=== PATIENT | female | born 1985 | race Caucasian/White ===

== ENCOUNTER 2017-07-17 17:09 | Emergency (ER) | payer MEDICAID, OTHER ==
[~2017-07-17] VITALS: Ht 157.5 cm; Wt 120.0 kg
[~2017-07-17 17:09] MED LIST: ADDE10 PO; ALBUAER3 INH; CEPH500C PO; CYCL5TAB PO; FLUC150T PO; TRAM50TA PO; ZOFR8TAB4 SL; benadryl
[2017-07-17 17:20] VITALS: BP 138/80; PULSE 132; RESP 20; TEMP 101.5; O2SAT 100
[2017-07-17] MEDS ORDERED: SODIUM CHLOR 0.9% 1000 ML INJ 1,000 ML IV SCH (17:41)
--- NOTE | 2017-07-17 17:44 | PD ---
HPI Chief Complaint: GI Complaint Time Seen by Provider: 17:32 Travel History International Travel<30 days: No Contact w/Intl Traveler<30days: No Traveled to known affect area: No History of Present Illness HPI 32-year-old female with no significant medical history presents emergency department for evaluation of nausea, vomiting, diarrhea that began yesterday. She also developed a fever throughout the night. 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 She denies any cough or chest congestion. She denies any significant abdominal pain. She has no other symptoms to report at this time. PFSH Past Medical History GERD: Yes Immunizations Current: No ?: Not : 4 Para: 2 Miscarriage: 1 Past Surgical History Appendectomy: Yes Section: Yes Cholecystectomy: Yes Social History Alcohol Use: No Tobacco Use: No Substance Use: No Allergies-Medications (Allergen,Severity, Reaction): Coded Allergies: Sulfa (Sulfonamide Antibiotics) (Verified Allergy, Severe, 07/17/17) codeine (Verified Allergy, Severe, Shortness of Breath, 07/17/17) methylergonovine (Verified Allergy, Severe, 07/17/17) penicillin G (Verified Allergy, Severe, 07/17/17) Reported Meds & Prescriptions Reported Meds & Active Scripts Active Zofran Odt (Ondansetron Odt) 4 Mg Tab 4 Mg SL Q8HR PRN Reported Tramadol (Tramadol HCl) 50 Mg Tab 50 Mg PO Q4H PRN Review of Systems Except as stated in HPI: all other systems reviewed are Neg Physical Exam Narrative GENERAL: Obese female patient, in no acute distress SKIN: Focused skin assessment warm/dry. HEAD: Atraumatic. Normocephalic. EYES: Pupils equal and round. No scleral icterus. No injection or drainage. ENT: No nasal bleeding or discharge. Mucous membranes pink and moist. NECK: Trachea midline. No JVD. CARDIOVASCULAR: Tachycardic rate and rhythm. No murmur appreciated. RESPIRATORY: No accessory muscle use. Clear to auscultation. Breath sounds equal bilaterally. GASTROINTESTINAL: Abdomen soft, non-tender, nondistended. No guarding. No rebound tenderness hepatic and splenic margins not palpable. MUSCULOSKELETAL: No obvious deformities. No clubbing. No cyanosis. No edema. NEUROLOGICAL: Awake and alert. No obvious cranial nerve deficits. Motor grossly within normal limits. Normal speech. PSYCHIATRIC: Appropriate mood and affect; insight and judgment normal. Data Data Last Documented VS Vital Signs Date Time Temp Pulse Resp B/P (MAP) Pulse Ox O2 Delivery O2 Flow Rate FiO2 07/17/17 21:29 07/17/17 20:52 105 07/17/17 18:46 16 07/17/17 18:34 98.9 99 Orders Orders Complete Blood Count With Diff (07/17/17 17:41) Comprehensive Metabolic Panel (07/17/17 17:41) Lipase (07/17/17 17:41) Lactic Acid (07/17/17 17:41) Urinalysis - C+S If Indicated (07/17/17 17:41) Iv Access Insert/Monitor (07/17/17 17:41) Ecg Monitoring (07/17/17 17:41) Oximetry (07/17/17 17:41) Sodium Chlor 0.9% 1000 Ml Inj (Ns 1000 M (07/17/17 17:41) Sodium Chloride 0.9% Flush (Ns Flush) (07/17/17 17:45) Ketorolac Inj (Toradol Inj) (07/17/17 17:45) Sodium Chlor 0.9% 1000 Ml Inj (Ns 1000 M (07/17/17 17:45) Sodium Chlor 0.9% 1000 Ml Inj (Ns 1000 M (07/17/17 17:45) Acetaminophen (Tylenol) (07/17/17 17:45) Ed Urine Pregnancytest Poc (07/17/17 17:43) Influenzae A/B Antigen (07/17/17 17:43) Ondansetron Odt (Zofran Odt) (07/17/17 21:00) Ed Discharge Order (07/17/17 21:27) Labs Laboratory Tests Test 07/17/17 18:00 07/17/17 20:32 White Blood Count 6.1 TH/MM3 Red Blood Count 4.30 MIL/MM3 Hemoglobin 13.1 GM/DL Hematocrit 38.5 % Mean Corpuscular Volume 89.7 FL Mean Corpuscular Hemoglobin 30.5 PG Mean Corpuscular Hemoglobin Concent 34.0 % Red Cell Distribution Width 13.0 % Platelet Count 310 TH/MM3 Mean Platelet Volume 7.7 FL Neutrophils (%) (Auto) 68.9 % Lymphocytes (%) (Auto) 18.1 % Monocytes (%) (Auto) 12.0 % Eosinophils (%) (Auto) 0.7 % Basophils (%) (Auto) 0.3 % Neutrophils # (Auto) 4.2 TH/MM3 Lymphocytes # (Auto) 1.1 TH/MM3 Monocytes # (Auto) 0.7 TH/MM3 Eosinophils # (Auto) 0.0 TH/MM3 Basophils # (Auto) 0.0 TH/MM3 CBC Comment DIFF FINAL Differential Comment Blood Urea Nitrogen 10 MG/DL Creatinine 0.76 MG/DL Random Glucose 86 MG/DL Total Protein 7.7 GM/DL Albumin 3.7 GM/DL Calcium Level 8.5 MG/DL Alkaline Phosphatase 91 U/L Aspartate Amino Transf (AST/SGOT) 45 U/L Alanine Aminotransferase (ALT/SGPT) 47 U/L Total Bilirubin 0.8 MG/DL Sodium Level 138 MEQ/L Potassium Level 3.3 MEQ/L Chloride Level 103 MEQ/L Carbon Dioxide Level 23.5 MEQ/L Anion Gap 12 MEQ/L Estimat Glomerular Filtration Rate 87 ML/MIN Lactic Acid Level 0.8 mmol/L Lipase 106 U/L Urine Color LIGHT-YELLOW Urine Turbidity CLEAR Urine pH 5.5 Urine Specific [place] 1.005 Urine Protein NEG mg/dL Urine Glucose (UA) NEG mg/dL Urine Ketones TRACE mg/dL Urine Occult Blood NEG Urine Nitrite NEG Urine Bilirubin NEG Urine Urobilinogen LESS THAN 2.0 MG/DL Urine Leukocyte Esterase NEG Urine Squamous Epithelial Cells 2 /hpf Microscopic Urinalysis Comment CULT NOT INDICATED MDM Medical Decision Making Medical Screen Exam Complete: Yes Emergency Medical Condition: Yes Medical Record Reviewed: Yes Differential Diagnosis Gastroenteritis versus influenza versus UTI versus other viral syndrome Narrative Course 32-year-old female presents emergency department for evaluation. Patient is tachycardic and with a fever. She is given IV normal saline fluid, Toradol, Tylenol. Upon reassessment, fever has reduced and her heart rate has also. Laboratory Tests Test 07/17/17 18:00 07/17/17 20:32 White Blood Count 6.1 TH/MM3 Red Blood Count 4.30 MIL/MM3 Hemoglobin 13.1 GM/DL Hematocrit 38.5 % Mean Corpuscular Volume 89.7 FL Mean Corpuscular Hemoglobin 30.5 PG Mean Corpuscular Hemoglobin Concent 34.0 % Red Cell Distribution Width 13.0 % Platelet Count 310 TH/MM3 Mean Platelet Volume 7.7 FL Neutrophils (%) (Auto) 68.9 % Lymphocytes (%) (Auto) 18.1 % Monocytes (%) (Auto) 12.0 % Eosinophils (%) (Auto) 0.7 % Basophils (%) (Auto) 0.3 % Neutrophils # (Auto) 4.2 TH/MM3 Lymphocytes # (Auto) 1.1 TH/MM3 Monocytes # (Auto) 0.7 TH/MM3 Eosinophils # (Auto) 0.0 TH/MM3 Basophils # (Auto) 0.0 TH/MM3 CBC Comment DIFF FINAL Differential Comment Blood Urea Nitrogen 10 MG/DL Creatinine 0.76 MG/DL Random Glucose 86 MG/DL Total Protein 7.7 GM/DL Albumin 3.7 GM/DL Calcium Level 8.5 MG/DL Alkaline Phosphatase 91 U/L Aspartate Amino Transf (AST/SGOT) 45 U/L Alanine Aminotransferase (ALT/SGPT) 47 U/L Total Bilirubin 0.8 MG/DL Sodium Level 138 MEQ/L Potassium Level 3.3 MEQ/L Chloride Level 103 MEQ/L Carbon Dioxide Level 23.5 MEQ/L Anion Gap 12 MEQ/L Estimat Glomerular Filtration Rate 87 ML/MIN Lactic Acid Level 0.8 mmol/L Lipase 106 U/L Urine Color LIGHT-YELLOW Urine Turbidity CLEAR Urine pH 5.5 Urine Specific [place] 1.005 Urine Protein NEG mg/dL Urine Glucose (UA) NEG mg/dL Urine Ketones TRACE mg/dL Urine Occult Blood NEG Urine Nitrite NEG Urine Bilirubin NEG Urine Urobilinogen LESS THAN 2.0 MG/DL Urine Leukocyte Esterase NEG Urine Squamous Epithelial Cells 2 /hpf Microscopic Urinalysis Comment CULT NOT INDICATED This is likely a viral gastroenteritis. Patient is counseled on care, encouraged follow-up with a primary care provider and return immediately with acute worsening symptoms. Diagnosis Primary Impression: Gastroenteritis Referrals: Primary Care Physician Patient Instructions: Gastroenteritis (ED), General Instructions Departure Forms: Tests/Procedures, Work Release Enter return to work date: Jul 21, 2017 Additional Instructions: Rest Maintain adequate oral hydration Follow-up with a primary care provider Clear liquid diet, advance as tolerated Return immediately with acute worsening of symptoms Med/Other Pt SpecificInfo: Prescription(s) given Scripts Ondansetron Odt (Zofran Odt) 4 Mg Tab 4 MG SL Q8HR Y for Nausea/Vomiting, #15 TAB 0 Refills Prov: Yazmin Hartmann 07/17/17 Disposition: 01 DISCHARGE HOME Condition: Stable Yazmin Hartmann Jul 17, 2017 17:44
[2017-07-17] MEDS ORDERED: SODIUM CHLOR 0.9% 1000 ML INJ 1,000 ML IV ONE ×2 (17:45)
[2017-07-17] MEDS ORDERED: ACETAMINOPHEN 500 MG CPLT PO ONE (17:45)
[2017-07-17] MEDS ORDERED: KETOROLAC TROMETHAMINE 30 MG/ML (IVP) VIAL IVP ONE (17:45)
[2017-07-17] MEDS ORDERED: SODIUM CHLORIDE 0.9% FLUSH 10 ML FLUSH IV FLUSH PRN (17:45)
[2017-07-17 18:07] VITALS: PULSE 118; RESP 18; O2SAT 99
[2017-07-17 18:34] VITALS: BP 125/73; PULSE 118; RESP 20; TEMP 98.9; O2SAT 99
[2017-07-17 18:37] LABS: AUTOMATED NEUTROPHIL # 4.2 TH/MM3 (1.8-7.7); BASOPHIL % 0.3 % (0.0-2.0); EOSINOPHIL % 0.7 % (0.0-4.0); HEMATOCRIT 38.5 % (35.0-46.0); HEMOGLOBIN 13.1 GM/DL (11.6-15.3); LYMPH % 18.1 % (9.0-44.0); LYMPHOCYTE # 1.1 TH/MM3 (1.0-4.8); MEAN CELL VOLUME 89.7 FL (80.0-100.0); MEAN CORPUSCULAR HEMOGLOBIN 30.5 PG (27.0-34.0); MEAN PLATELET VOLUME 7.7 FL (7.0-11.0); MONOCYTE # 0.7 TH/MM3 (0-0.9); NEUT % 68.9 % (16.0-70.0); PLATELET COUNT 310 TH/MM3 (150-450); WHITE BLOOD COUNT 6.1 TH/MM3 (4.0-11.0)
[2017-07-17 18:46] VITALS: RESP 16
[2017-07-17 19:01] LABS: ALBUMIN 3.7 GM/DL (3.4-5.0); AST (GOT) 45 U/L (15-37); BICARBONATE 23.5 MEQ/L (21.0-32.0); BLOOD UREA NITROGEN 10 MG/DL (7-18); CALCIUM 8.5 MG/DL (8.5-10.1); CHLORIDE 103 MEQ/L (98-107); CREATININE 0.76 MG/DL (0.50-1.00); GLOMERULAR FILTRATION RATE 87 ML/MIN (>89); GLUCOSE,RANDOM 86 MG/DL (74-106); SODIUM (NA) 138 MEQ/L (136-145)
[2017-07-17 19:02] LABS: ALT (GPT) 47 U/L (10-53)
[2017-07-17 19:05] LABS: ALKALINE PHOSPHATASE 91 U/L (45-117); TOTAL BILIRUBIN ADULT 0.8 MG/DL (0.2-1.0); TOTAL PROTEIN 7.7 GM/DL (6.4-8.2)
[2017-07-17 20:52] VITALS: PULSE 105
[2017-07-17] MEDS ORDERED: ONDANSETRON ODT 4 MG TAB PO ONE (21:00)
[2017-07-17 21:16] LABS: BILIRUBIN, URINE NEG (NEG); BLOOD, URINE NEG (NEG); GLUCOSE,URINE NEG (NEG); KETONE, URINE TRACE mg/dL (NEG); NITRITE,URINE NEG (NEG); PH, URINE 5.5 (5.0-8.5); SQUAMOUS EPITHELIAL CELL URINE 2 /hpf (0-5); URINE COLOR LIGHT-YELLOW (YELLW/STRAW); URINE LEUKOCYTE ESTERASE NEG (NEG)
[2017-07-17] MEDS ORDERED: ZOFR4TAB3 SL (21:29)
== END 2017-07-17 21:50 | disposition home or self-care (01) ==
LOC: NEPE 17:09
DX: K52.9 Noninfective gastroenteritis and colitis, unspecified (principal)
CPT/HCPCS: 80053; 81001; 83605; 83690; 84703; 85025; 87804; 96361; 96374; 99284; J1885; J7030